=== PATIENT | female | born 1955 ===

== ENCOUNTER 2019-08-04 11:19 | Emergency (ER) | payer BC ==
[2019-08-04 12:39] VITALS: BP 151/37
--- NOTE | 2019-08-04 12:57 | Emergency Department Report ---
ED General Adult HPI - General Chief complaint: Urogenital-Female Stated complaint: LT LEG PAIN Time Seen by Provider: 08/04/19 12:53 Source: patient, EMS Mode of arrival: Stretcher Limitations: No Limitations - History of Present Illness Initial comments: Patient is 63 years old female with history of CVA x5. Patient brought to the emergency room via central EMS. Patient supposed to be admitted directly to fifth floor geriatric psych however the central EMS brought the patient to the ER. Patient stated that she is having a UTI. Patient is coming from [facility] and has a medical clearance to be admitted to the geriatric unit. I reviewed patient record and showed that she does have a UTI however patient has not been treated for that. Patient is currently denying any symptoms except for a heel pain from an old scar. Severity scale (0 -10): 0 - Related Data Home Medications Medication Instructions Recorded Confirmed Last Taken Alendronate Sodium [Fosamax] 70 mg PO QWEEK 08/04/19 08/04/19 Unknown Aspirin 325 mg PO QDAY 08/04/19 08/04/19 Unknown Aspirin/Dipyridamole 1 each PO BID 08/04/19 08/04/19 Unknown [Aspirin-Dipyridam ER 25-200 mg] AtorvaSTATin [Lipitor] 40 mg PO QHS 08/04/19 08/04/19 Unknown Docusate Sodium [Colace] 100 mg PO PRN PRN 08/04/19 08/04/19 Unknown Fluticasone [Flonase] 2 spray NS PRN PRN 08/04/19 08/04/19 Unknown Insulin Glargine,Hum.rec.anlog 40 unit SQ BID 08/04/19 08/04/19 Unknown [Lantus Solostar] Levothyroxine Sodium [Synthroid] 200 mcg PO QAM 08/04/19 08/04/19 Unknown Lisinopril [Zestril] 40 mg PO QDAY 08/04/19 08/04/19 Unknown Metoprolol Succinate [Toprol Xl] 100 mg PO HS 08/04/19 08/04/19 Unknown Omeprazole Magnesium [PriLOSEC Otc] 40 mg PO QDAY 08/04/19 08/04/19 Unknown Pregabalin [Lyrica] 150 mg PO TID 08/04/19 08/04/19 Unknown buPROPion SR [Wellbutrin Sr] 150 mg PO BID 08/04/19 08/04/19 Unknown gemfibroziL [Lopid] 600 mg PO BID 08/04/19 08/04/19 Unknown rOPINIRole [Requip] 1 mg PO QHS 08/04/19 08/04/19 Unknown traMADoL [Ultram] 50 mg PO PRN PRN 08/04/19 08/04/19 Unknown traZODone [Desyrel] 50 mg PO QHS 08/04/19 08/04/19 Unknown Allergies Allergy/AdvReac Type Severity Reaction Status Date / Time acetaminophen [From [place]] Allergy Unknown Verified 08/04/19 05:56 hydrocodone Allergy Unknown Verified 08/04/19 05:56 morphine Allergy Unknown Verified 08/04/19 05:56 nitrofurantoin Allergy Unknown Verified 08/04/19 05:56 ED Review of Systems ROS: Stated complaint: LT LEG PAIN Other details as noted in HPI Comment: All other systems reviewed and negative Constitutional: denies: chills, fever Respiratory: denies: cough, shortness of breath Gastrointestinal: denies: abdominal pain, nausea Musculoskeletal: denies: back pain Neurological: denies: headache, weakness ED Past Medical Hx - Past Medical History Previous Medical History?: Yes Hx Hypertension: Yes Hx CVA: Yes (L sided weakness) Hx Congestive Heart Failure: Yes Hx Diabetes: Yes Hx GERD: Yes Hx Psychiatric Treatment: Yes (depression) Additional medical history: Becca's disease, osteopenia - Surgical History Past Surgical History?: No - Social History Smoking Status: Never Smoker Substance Use Type: None - Medications Home Medications: Home Medications Medication Instructions Recorded Confirmed Last Taken Type Alendronate Sodium [Fosamax] 70 mg PO QWEEK 08/04/19 08/04/19 Unknown History Aspirin 325 mg PO QDAY 08/04/19 08/04/19 Unknown History Aspirin/Dipyridamole 1 each PO BID 08/04/19 08/04/19 Unknown History [Aspirin-Dipyridam ER 25-200 mg] AtorvaSTATin [Lipitor] 40 mg PO QHS 08/04/19 08/04/19 Unknown History Docusate Sodium [Colace] 100 mg PO PRN PRN 08/04/19 08/04/19 Unknown History Fluticasone [Flonase] 2 spray NS PRN PRN 08/04/19 08/04/19 Unknown History Insulin Glargine,Hum.rec.anlog 40 unit SQ BID 08/04/19 08/04/19 Unknown History [Lantus Solostar] Levothyroxine Sodium [Synthroid] 200 mcg PO QAM 08/04/19 08/04/19 Unknown History Lisinopril [Zestril] 40 mg PO QDAY 08/04/19 08/04/19 Unknown History Metoprolol Succinate [Toprol Xl] 100 mg PO HS 08/04/19 08/04/19 Unknown History Omeprazole Magnesium [PriLOSEC Otc] 40 mg PO QDAY 08/04/19 08/04/19 Unknown History Pregabalin [Lyrica] 150 mg PO TID 08/04/19 08/04/19 Unknown History buPROPion SR [Wellbutrin Sr] 150 mg PO BID 08/04/19 08/04/19 Unknown History gemfibroziL [Lopid] 600 mg PO BID 08/04/19 08/04/19 Unknown History rOPINIRole [Requip] 1 mg PO QHS 08/04/19 08/04/19 Unknown History traMADoL [Ultram] 50 mg PO PRN PRN 08/04/19 08/04/19 Unknown History traZODone [Desyrel] 50 mg PO QHS 08/04/19 08/04/19 Unknown History ED Physical Exam - General Limitations: No Limitations General appearance: alert, in no apparent distress - Head Head exam: Present: atraumatic, normocephalic, normal inspection - Eye Eye exam: Present: normal appearance - ENT ENT exam: Present: normal exam, normal orophraynx, mucous membranes moist - Neck Neck exam: Present: normal inspection, full ROM. Absent: tenderness, meningismus - Respiratory Respiratory exam: Present: normal lung sounds bilaterally - Cardiovascular Cardiovascular Exam: Present: regular rate, normal rhythm, normal heart sounds - GI/Abdominal GI/Abdominal exam: Present: soft, normal bowel sounds. Absent: distended, tenderness, guarding, rebound, rigid, organomegaly, mass, bruit, pulsatile mass, hernia - Extremities Exam Extremities exam: Present: normal inspection, full ROM, normal capillary refill. Absent: pedal edema, calf tenderness - Back Exam Back exam: Present: normal inspection, full ROM. Absent: CVA tenderness (R), CVA tenderness (L) - Neurological Exam Neurological exam: Present: alert, oriented X3, motor sensory deficit (Chronic weakness to the left upper and lower extremity from previous stroke.) - Skin Skin exam: Present: warm, intact, normal color ED Course Vital Signs 08/04/19 12:36 Temperature 98.2 F Pulse Rate 95 H Respiratory 14 Rate Blood Pressure 151/37 [Right] O2 Sat by Pulse 96 Oximetry Critical care attestation.: If time is entered above; I have spent that time in minutes in the direct care of this critically ill patient, excluding procedure time. ED Disposition Clinical Impression: Suicidal ideation, UTI (urinary tract infection) Disposition: [id number] PSY HOSP/PSY UNIT Is pt being admited?: No Condition: Stable Instructions: Suicide Prevention for Adults (ED), Urinary Tract Infection in Women (ED) Referrals: PRIMARY CARE, [Primary Care Provider] - 3-5 Days
== END 2019-08-04 13:00 ==
LOC: ED 11:19
DX: N39.0 Urinary tract infection, site not specified (principal); R45.851 Suicidal ideations; I11.0 Hypertensive heart disease with heart failure; I50.9 Heart failure, unspecified; K21.9 Gastro-esophageal reflux disease without esophagitis; E11.9 Type 2 diabetes mellitus without complications; Z86.73 Personal history of transient ischemic attack (TIA), and cerebral infarction without residual deficits; F32.9 Major depressive disorder, single episode, unspecified; Z79.82 Long term (current) use of aspirin; Z79.899 Other long term (current) drug therapy; Z88.1 Allergy status to other antibiotic agents; Z88.6 Allergy status to analgesic agent; Z88.8 Allergy status to other drugs, medicaments and biological substances
CPT/HCPCS: 99283